=== PATIENT | female | born 1945 | race Caucasian/White ===

== ENCOUNTER 2021-06-21 09:16 | Inpatient (IN) ==
[2021-06-21] MEDS ORDERED: 0.9 % SODIUM CHLORIDE 1,000 ML IV ONE (10:32)
--- NOTE | 2021-06-21 10:45 | Emergency Department Note ---
HPI General Chief complaint: Weakness Stated complaint: Weakness, Fever Time Seen by Provider: 06/21/21 10:45 Source: patient Mode of arrival: ambulatory Limitations: no limitations History of Present Illness HPI Narrative: 76-year-old female with past medical history of hyperthyroidism, diabetes, and peripheral vascular disease presenting with multiple complaints. She states over the last week she has had generalized weakness, shortness of breath, chills, and fever at home to 103F. She also endorses pain in her left flank area that radiates into her left lower quadrant. She also endorses a few episodes of vomiting and some diarrhea. No blood in the stool or melena. No chest pain, cough, headache, dysuria, or hematuria. No sick contacts. Related Data Home Medications Medication Instructions Recorded Confirmed levothyroxine 125 mcg tablet 150 mcg PO DAILY 05/13/16 05/22/17 losartan 100 1 ea PO DAILY 05/13/16 05/22/17 mg-hydrochlorothiazide 25 mg tablet amlodipine 10 mg tablet 5 mg PO DAILY 05/22/17 05/22/17 aspirin 81 mg chewable tablet 81 mg PO DAILY 05/22/17 05/22/17 (Sridhar Chewable Low Dose Aspirin) glucosamin 375 mg-chond 300 2 ea PO DAILY 05/22/17 05/22/17 mg-collagen 50 mg-hyaluronic acid 2 mg cap lysine HCl 500 mg tablet 500 mg PO BID 05/22/17 05/22/17 metoprolol tartrate 25 mg tablet 25 mg PO BID 05/22/17 05/22/17 [id number]-[id number] 1 ea PO DAILY 05/22/17 05/22/17 fumarate 7.5 mg-folic acid 400 mcg tablet potassium chloride 20 mEq 20 meq PO BID 05/22/17 05/22/17 tablet,extended release(part/cryst) (Klor-Con M) vit A 1,000 unit-C 60 mg-E 30 1 ea PO DAILY 05/22/17 05/22/17 unit-zinc oxid-selenium AA-copper tablet (Vision Formula(W-S-L-Zn-Se-Cu)) zinc 50 mg tablet (Chelated Zinc) 50 mg PO DAILY 05/22/17 05/22/17 Previous Rx's Medication Instructions Recorded sulfamethoxazole 800 1 tab PO BID #20 tab 05/29/17 mg-trimethoprim 160 mg tablet amoxicillin 875 mg tablet 875 mg PO BID #20 tab 04/23/19 fluticasone propionate 50 1 spray INTRANASAL BID #9.9 ml 04/23/19 mcg/actuation nasal spray,suspension (Allergy Relief (fluticasone)) loratadine 10 mg capsule 10 mg PO QDAY #30 cap 04/23/19 Allergies Allergy/AdvReac Type Severity Reaction Status Date / Time No Known Drug Allergies Allergy Verified 05/22/17 13:02 Review of Systems ROS ROS Narrative: Narrative: Constitutional: Reports fever and chills Eyes: Denies vision change ENT ED: Denies throat pain Cardiovascular: Denies chest pain or palpitations Respiratory: Reports shortness of breath; Denies cough Gastrointestinal: Reports abdominal pain, nausea and vomiting; Denies melena Genitourinary: Denies dysuria or frequency Musculoskeletal: Reports back pain; Denies joint swelling Integumentary: Denies rash Neurological: Reports weakness; Denies headache or dizziness Psychiatric: Denies anxiety Endocrine: Reports fatigue Hematological/Lymphatic: Denies easy bleeding PFSH Narrative Patient History Narrative: Narrative: Medical/Surgical/Family History All Active Problems (Updated 06/21/21 @ 16:08 by Faraz Joy MD) Acute pyelonephritis (Acute) Acute kidney injury (Acute) Hyponatremia (Acute) Skin cancer (Chronic) Benign neoplasm of skin of trunk (Chronic) Seborrheic keratosis (Chronic) Actinic keratosis (Chronic) Lentigo (Chronic) Skin hemangioma (Chronic) Seborrheic dermatitis (Chronic) Moderate major depression (Chronic) Chronic cough (Chronic) Osteoarthritis (Chronic) Epigastric abdominal pain (Chronic) Hypothyroidism (Chronic) GERD (gastroesophageal reflux disease) (Chronic) Hypertriglyceridemia (Chronic) Mitral regurgitation (Chronic) Peripheral vascular disease with claudication (Chronic) Left ventricular hypertrophy (Chronic) Heart disease, hypertensive (Chronic) Carotid artery stenosis (Chronic) Finger laceration (Chronic) Bilateral knee pain (Chronic) Diabetes mellitus type II, uncontrolled (Chronic) Flank Pain (Chronic) Minor head injury (Chronic) Fall (Chronic) Laceration (Chronic) Cellulitis (Chronic) Medical History (Updated 06/21/21 @ 16:08 by Faraz Joy MD) Actinic keratosis Benign neoplasm of skin of trunk Bilateral knee pain Carotid artery stenosis Chronic cough Diabetes mellitus type II, uncontrolled Epigastric abdominal pain Finger laceration Flank Pain GERD (gastroesophageal reflux disease) Heart disease, hypertensive Hypertriglyceridemia Hypothyroidism Left ventricular hypertrophy Lentigo Mitral regurgitation Moderate major depression Osteoarthritis Peripheral vascular disease with claudication Seborrheic dermatitis Seborrheic keratosis Skin cancer Skin hemangioma Surgical History (Updated 07/19/18 @ 09:58 by Sharmaine Damon) History of bilateral oophorectomy History of cataract extraction x2 2014 History of hysterectomy Family History (Updated 07/19/18 @ 09:58 by Sharmaine Damon) Mother PMR (polymyalgia rheumatica) Social History Smoking Status: Former smoker Alcohol Intake Frequency: does not drink Exam Narrative Narrative: Narrative: General Limitations: no limitations General appearance: Present alert and in no apparent distress Head Head: Present atraumatic and normocephalic Eye Eye: Present normal appearance, PERRL and EOMI; Absent scleral icterus or conjunctival injection ENT ENT: Present normal oropharynx and mucous membranes moist Neck Neck: Present full ROM and trachea midline; Absent lymphadenopathy Chest Chest: Present symmetric chest wall rise Respiratory Respiratory: Present normal lung sounds bilaterally; Absent respiratory dist ress, wheezes, stridor, accessory muscle use or prolonged expiratory phase Cardiovascular Cardiovascular: Present regular rate and normal rhythm; Absent systolic murmur or diastolic murmur Adbominal Abdominal: Present soft and tenderness (Left lower quadrant tenderness); Absent distention, guarding, rebound, rigidity, organomegaly or mass Extremities Extremities: Present normal inspection and full ROM; Absent pretibial edema Back Back: Present normal inspection and CVA tenderness (L); Absent CVA tenderness (R) or spinous process tenderness Neurological Neurological: Present alert and oriented X3 Psychiatric Psychiatric: Present normal affect and normal mood Skin Skin: Present warm (WNL) and dry Course Consultations Consultation #1: Dr. Calvin, hospitalist Time: 15:40 Vital Signs Vital signs: Vital Signs Temperature 98.8 F 06/21/21 09:18 Pulse Rate 79 06/21/21 09:18 Respiratory Rate 24 H 06/21/21 09:18 Blood Pressure 112/53 06/21/21 09:18 Pulse Oximetry (%) 96 06/21/21 09:18 Temperature 98.8 F 06/21/21 09:18 Pulse Rate 76 06/21/21 15:16 Respiratory Rate 24 H 06/21/21 09:18 Blood Pressure 138/58 06/21/21 15:16 Pulse Oximetry (%) 97 06/21/21 15:16 MDM MDM Narrative Medical decision making narrative: 76-year-old female presenting with weakness, fever, and abdominal pain. Vital signs are stable. She is tender on abdominal exam. EKG shows right bundle branch block with PACs but no signs of ischemia. Covid and influenza are negative. Will obtain labs, chest x-ray, CT abdomen, and UA. Labs notable for leukocytosis to 13.3, creatinine of 2.8, and sodium of 127. UA is consistent with infection and CT results as well as her physical exam consistent with left-sided pyelonephritis. Vital signs are stable. She was given normal saline bolus and a dose of IV Rocephin. Patient endorsed to Dr. Calvin for admission. Lab Data Lab results reviewed: Yes I reviewed the patient's lab results. Result diagrams: 06/21/21 10:30 06/21/21 10:30 Labs: Lab Results 06/21/21 06/21/21 06/21/21 Range/Units 10:30 10:30 10:30 WBC 13.3 H (4.5-11.0) K/mcL RBC 3.56 L (3.59-5.38) M/mcL Hgb 10.2 L (11.2-15.7) g/dL Hct 29.9 L (34.1-44.9) % MCV 84.0 (80.0-100.0) fL MCH 28.7 (26.0-34.0) pg MCHC 34.1 (31.0-36.0) g/dL RDW 14.0 (11.5-14.5) % Plt Count 247 (140-440) K/mcL MPV 10.9 H (7.4-10.4) fL Seg Neutrophils % 82 H (38-78) % Band Neutrophils % 4 (0-10) % Lymphocytes % 5 L (15-49) % Monocytes % (Manual) 9 (1-12) % Platelet Estimate Normal (Normal) RBC Morphology Normal (Normal) Sodium 127 L (133-145) mmol/L Potassium 3.0 L (3.3-5.1) mmol/L Chloride 93 L (96-108) mmol/L Carbon Dioxide 18 L (22-30) mmol/L Anion Gap 16.0 (8.0-16.0) BUN 59 H (8-23) mg/dL Creatinine 2.8 H (0.6-1.1) mg/dL POC Creatinine (0.6-1.2) mg/dL GFR Calculation 16 Glucose 111 H (70-105) mg/dL Calcium 8.3 L (8.6-10.4) mg/dL Total Bilirubin 0.4 (0.1-1.0) mg/dL AST 67 H (<32) U/L ALT 39 (<40) U/L Alkaline Phosphatase 82 (39-117) U/L Troponin T < 0.01 (<0.03) ng/mL Total Protein 6.7 (5.9-8.4) gm/dL Albumin 3.1 L (3.2-5.2) gm/dL Globulin 3.6 (2.2-3.7) gm/dL Albumin/Globulin Ratio 0.9 L (1.0-2.3) Urine Color Urine Appearance (Clear) Urine pH (5.0-9.0) Ur Specific [place] (1.000-1.035) Urine Protein (Negative) mg/dL Urine Glucose (UA) (Negative) mg/dL Urine Ketones (Negative) mg/dL Urine Occult Blood (Negative) mg/dL Urine Nitrate (Negative) Urine Bilirubin (Negative) mg/dL Urine Urobilinogen mg/dL Ur Leukocyte Esterase (Negative) /uL Urine RBC (0-3) /hpf Urine WBC (0-4) /hpf Ur Squamous Epith Cells (0-4) /hpf Ur Transition Epith Cell (0-2) /hpf Urine Bacteria (0) /hpf Hyaline Casts (0-2) /lph Urine Mucus (None) /hpf Ur Culture Indicated? 06/21/21 06/21/21 Range/Units 11:04 11:43 WBC (4.5-11.0) K/mcL RBC (3.59-5.38) M/mcL Hgb (11.2-15.7) g/dL Hct (34.1-44.9) % MCV (80.0-100.0) fL MCH (26.0-34.0) pg MCHC (31.0-36.0) g/dL RDW (11.5-14.5) % Plt Count (140-440) K/mcL MPV (7.4-10.4) fL Seg Neutrophils % (38-78) % Band Neutrophils % (0-10) % Lymphocytes % (15-49) % Monocytes % (Manual) (1-12) % Platelet Estimate (Normal) RBC Morphology (Normal) Sodium (133-145) mmol/L Potassium (3.3-5.1) mmol/L Chloride (96-108) mmol/L Carbon Dioxide (22-30) mmol/L Anion Gap (8.0-16.0) BUN (8-23) mg/dL Creatinine (0.6-1.1) mg/dL POC Creatinine 3.0 H (0.6-1.2) mg/dL GFR Calculation Glucose (70-105) mg/dL Calcium (8.6-10.4) mg/dL Total Bilirubin (0.1-1.0) mg/dL AST (<32) U/L ALT (<40) U/L Alkaline Phosphatase (39-117) U/L Troponin T (<0.03) ng/mL Total Protein (5.9-8.4) gm/dL Albumin (3.2-5.2) gm/dL Globulin (2.2-3.7) gm/dL Albumin/Globulin Ratio (1.0-2.3) Urine Color Yellow Urine Appearance Cloudy A (Clear) Urine pH 5.0 (5.0-9.0) Ur Specific [place] 1.012 (1.000-1.035) Urine Protein 100 A (Negative) mg/dL Urine Glucose (UA) Negative (Negative) mg/dL Urine Ketones Negative (Negative) mg/dL Urine Occult Blood 0.20 (Negative) mg/dL Urine Nitrate Negative (Negative) Urine Bilirubin Negative (Negative) mg/dL Urine Urobilinogen Negative mg/dL Ur Leukocyte Esterase 500 A (Negative) /uL Urine RBC 43 H (0-3) /hpf Urine WBC > 182 H (0-4) /hpf Ur Squamous Epith Cells 6 H (0-4) /hpf Ur Transition Epith Cell 2 (0-2) /hpf Urine Bacteria Mod A (0) /hpf Hyaline Casts 14 H (0-2) /lph Urine Mucus Few A (None) /hpf Ur Culture Indicated? No ED POC Tests ED POC Tests: SILVIA - Influenza A Negative SILVIA - Influenza B Negative SILVIA - SARS Antigen Negative Radiology Data Radiology results reviewed: Yes I reviewed the patient's radiology results. Radiology results narrative: Ordering Physician:Faraz Joy M.D. Date of Service:06/21/21 Procedure(s):XR chest 2V CLINICAL INFORMATION: Dyspnea COMPARISON: 02/03/2021 TECHNIQUE: PA and Lateral views FINDINGS: The heart is borderline enlarged but unchanged. Mediastinum and pulmonary vessels are normal. Minimal patchy airspace disease in both lower lobes could indicate developing infiltrate or atelectasis. No effusion. IMPRESSION: Minimal patchy bilateral lower lobe airspace disease which may indicate developing infiltrate or atelectasis.. Interpreted and Authenticated by: Arden Olivares 06/21/21 Ordering Physician:Faraz Joy M.D. Date of Service:06/21/21 Procedure(s):CT abdomen pelvis wo con CLINICAL INFORMATION: Left flank pain and vomiting fever COMPARISON: Abdomen and pelvic CT 03/17/2017 TECHNIQUE: 0.625 mm helical slices were obtained from the mid heart through the subtrochanteric regions. Following reconstruction, 2.5 mm sagittal, coronal and axial reformatted images were processed and reviewed at bone and soft tissue windows.The exam was performed using radiation dose optimization techniques including, but not limited to, automated exposure control, adjustment of the mA and/or kV according to patient size and use of iterative reconstruction technique. FINDINGS: The lung bases are clear. No effusions. The visualized heart is grossly normal. Abdominal images show the noncontrasted gallbladder and bile ducts, liver, adrenal glands, spleen, pancreas and aorta, including aortic branches, are normal in size, configuration and attenuation without focal lesion. There is no free air, free fluid or adenopathy. Both kidneys are normal in configuration position. Both are moderately enlarged: ET tube is 15 cm in length. On the previous exam. KUB was approximately 13 cm in length. The left kidney demonstrates diffuse inflammation or edema with perinephric stranding suggesting infection or inflammation. No evidence of hydronephrosis or stones. Pelvic images show mild diffuse wall thickening the urinary bladder. Uterus and both ovaries are surgically absent. The stomach, small bowel, appendix region and large bowel are grossly normal. Bone windows show no osseous abnormality. IMPRESSION: 1. Mild edema or inflammation throughout the left kidney with perinephric stranding suggesting pyelonephritis or other inflammatory process. There is no evidence of hydronephrosis or obstructing stone. 2. Mild diffuse wall thickening of urinary bladder suggesting cystitis or other infiltrative process. Interpreted and Authenticated by: Arden Olivares 06/21/21 EKG Data EKG #1: EKG attestation: Yes I reviewed and interpreted this EKG. and Yes There are no EKG findings of acute coronary syndrome EKG results narrative: Sinus rhythm at 68 bpm. Right bundle branch block present. PACs noted. No ST elevation or depression. Interpretation: no acute changes Discharge Plan Patient/Caregiver Discharge Instructions Pt seen by FINANCIAL SERVICES SPECIALIST/PA only: No Clinical Impression: Acute pyelonephritis, Acute kidney injury, Hyponatremia Patient Disposition: Xfer As Inpt ([facility]) Condition: Fair Follow up with: Sandrita Motta MD [Primary Care Provider] - Prescriptions: No Action losartan-hydrochlorothiazide 1 EACH Tablet 1 ea PO DAILY 0RF levothyroxine 125 MCG Tablet 150 mcg PO DAILY 0RF potassium chloride [Klor-Con M20] 20 MEQ Tab.Er.Prt 20 meq PO BID 0RF amlodipine 10 MG Tablet 5 mg PO DAILY 0RF aspirin [Sridhar Chewable Aspirin] 81 MG Tab.Chew 81 mg PO DAILY 0RF zinc [Chelated Zinc] 50 MG Tablet 50 mg PO DAILY 0RF metoprolol tartrate 25 MG Tablet 25 mg PO BID 0RF yadykctw-jzsf-wpfebi-hyalur ac 1 EACH Capsule 2 ea PO DAILY 0RF lysine HCl 500 MG Tablet 500 mg PO BID 0RF duqdkqfu-ybs-rziw fum-folic ac 1 EACH Tablet 1 ea PO DAILY 0RF A-C-E-zinc ox-selen AA-copper [Vision Formula(E-H-G-Zn-Se-Cu)] 1 EACH Tablet 1 ea PO DAILY 0RF sulfamethoxazole-trimethoprim 1 TAB tablet 1 tab PO BID Qty: 20 0RF amoxicillin 875 mg tablet 875 mg PO BID Qty: 20 0RF fluticasone propionate [Allergy Relief (fluticasone)] 50 mcg/actuation spr ay,suspension 1 spray INTRANASAL BID Qty: 9.9 0RF Rx Instructions: administer into each nostril loratadine 10 mg capsule 10 mg PO QDAY Qty: 30 0RF
[2021-06-21 11:31] LABS: ALT/SGPT 39 U/L (<40); AST/SGOT 67 U/L (<32); Albumin 3.1 gm/dL (3.2-5.2); Albumin/Globulin Ratio 0.9 (1.0-2.3); Alkaline Phosphatase 82 U/L (39-117); Bilirubin,Total 0.4 mg/dL (0.1-1.0); Blood Urea Nitrogen 59 mg/dL (8-23); Calcium 8.3 mg/dL (8.6-10.4); Carbon Dioxide 18 mmol/L (22-30); Chloride 93 mmol/L (96-108); Globulin 3.6 gm/dL (2.2-3.7); Glomerular Filtration Rate 16; Glucose 111 mg/dL (70-105)
[2021-06-21 11:45] LABS: Hematocrit 29.9 % (34.1-44.9); Hemoglobin 10.2 g/dL (11.2-15.7); Mean Corpuscular HGB Conc 34.1 g/dL (31.0-36.0); Mean Platelet Volume 10.9 fL (7.4-10.4); Platelet Count 247 K/mcL (140-440); RBC 3.56 M/mcL (3.59-5.38); WBC 13.3 K/mcL (4.5-11.0)
[2021-06-21 12:09] LABS: Band Neutrophils % 4 % (0-10); Lymphocytes % 5 % (15-49); Monocytes % (Manual) 9 % (1-12); Platelet Estimate NORMAL (Normal); RBC Morphology NORMAL (Normal); Segmented Neutrophils % 82 % (38-78)
[2021-06-21 12:09] LABS: Appearance,Urine CLOUDY (Clear); Bacteria,Urine MOD /hpf (0); Bilirubin,Urine Negative (Negative); Color,Urine Yellow; Culture Indicated,Urine No; Glucose,Urine (UA) Negative (Negative); Ketones,Urine Negative (Negative); Leukocyte Esterase,Urine 500 /uL (Negative); Mucus,Urine FEW /hpf; Nitrate,Urine Negative (Negative); Protein,Urine 100 mg/dL (Negative); Specific Gravity,Urine 1.012 (1.000-1.035); Urine Hyaline Cast 14 /lph (0-2); Urine RBC 43 /hpf (0-3); Urine Squamous Epithelial Cell 6 /hpf (0-4); Urine Transitional Epi Cells 2 /hpf (0-2); Urine WBC > 182 /hpf (0-4); Urobilinogen,Urine Negative
--- NOTE | 2021-06-21 13:02 | XRay Report ---
CLINICAL INFORMATION: Dyspnea COMPARISON: 02/03/2021 TECHNIQUE: PA and Lateral views FINDINGS: The heart is borderline enlarged but unchanged. Mediastinum and pulmonary vessels are normal. Minimal patchy airspace disease in both lower lobes could indicate developing infiltrate or atelectasis. No effusion. IMPRESSION: Minimal patchy bilateral lower lobe airspace disease which may indicate developing infiltrate or atelectasis.. Interpreted and Authenticated by: Arden Olivares 06/21/21
--- NOTE | 2021-06-21 14:16 | Cat Scan Report ---
CLINICAL INFORMATION: Left flank pain and vomiting fever COMPARISON: Abdomen and pelvic CT 03/17/2017 TECHNIQUE: 0.625 mm helical slices were obtained from the mid heart through the subtrochanteric regions. Following reconstruction, 2.5 mm sagittal, coronal and axial reformatted images were processed and reviewed at bone and soft tissue windows.The exam was performed using radiation dose optimization techniques including, but not limited to, automated exposure control, adjustment of the mA and/or kV according to patient size and use of iterative reconstruction technique. FINDINGS: The lung bases are clear. No effusions. The visualized heart is grossly normal. Abdominal images show the noncontrasted gallbladder and bile ducts, liver, adrenal glands, spleen, pancreas and aorta, including aortic branches, are normal in size, configuration and attenuation without focal lesion. There is no free air, free fluid or adenopathy. Both kidneys are normal in configuration position. Both are moderately enlarged: ET tube is 15 cm in length. On the previous exam. KUB was approximately 13 cm in length. The left kidney demonstrates diffuse inflammation or edema with perinephric stranding suggesting infection or inflammation. No evidence of hydronephrosis or stones. Pelvic images show mild diffuse wall thickening the urinary bladder. Uterus and both ovaries are surgically absent. The stomach, small bowel, appendix region and large bowel are grossly normal. Bone windows show no osseous abnormality. IMPRESSION: 1. Mild edema or inflammation throughout the left kidney with perinephric stranding suggesting pyelonephritis or other inflammatory process. There is no evidence of hydronephrosis or obstructing stone. 2. Mild diffuse wall thickening of urinary bladder suggesting cystitis or other infiltrative process. Interpreted and Authenticated by: Arden Olivares 06/21/21
--- NOTE | 2021-06-21 14:32 | EKG ---
[facility] Test Date: 2021-06-21 Pat Name: Carlota Sparrow Department: ED Room: Gender: Female [employer]: : 1945 Requested By: Faraz Joy Order Number: [id number] Reading MD: Arden Baptiste M.D. Measurements Intervals [place] Rate: 68 P: 18 ND: 170 QRS: 29 QRSD: 166 T: -33 QT: 422 QTc: 449 Interpretive Statements Sinus rhythm Atrial premature complexes Right bundle branch block Electronically Signed On 06-21-2021 14:31:35 PST by Arden Baptiste M.D. /[id number]
[2021-06-21] MEDS ORDERED: cefTRIAXone 1 GM VIAL IV ONE (14:43)
--- NOTE | 2021-06-21 16:22 | Internal Med History&Physical ---
HPI History of Present Illness Patient information: Note initiated : 06/21/21 at 4:16 pm Service Date, if different from initiated Date: [] Patient: Carlota Sparrow a 76 y/o F admitted on for Weakness, Fever. Chief Complaint: [pyelonephritis] History of present illness: Ms. Sparrow is a 76 year old F history of T2DM, peripheral vesicular disease, essential HTN, p/w 1 week history of general body weakness, left upper back pain, and decreased appetite. She denies prior or recent history of UTI. Over the past week, she is complaining of left sided back pain, associated with general body weakness and decreased appetite. She is also c/o fever and chills with Tmax 103 a few days ago. She denies any dysuria or change in urinary frequency or urgency. She presented to our ED today for evaluation of her symptoms. Vital signs all within normal limits. Labs significant for leukocytosis with WBC 13.3. Serum sodium and potassium 127 and 3.0, respectively. Serum Cr level 2.8 with baseline 0.66. UA indicative of presence of UTI. CT abdomen pelvis w/o showing mild edema or inflammation throughout the left kidney with perinephric stranding suggestive of pyelonephritis. No evidence of hydronephrosis or obstructing stone. Constitutional Constitutional: Present chills, fatigue, fever(s) and weakness; Absent excessive sweating Additional comments: decreased appetite. EENT Eyes: Absent blurry vision, change in vision, loss of vision or other visual disturbances Ears: Absent decreased hearing or tinnitus Nose, mouth and throat: Absent abnormal hearing, dry mouth, headache(s), nasal congestion or sore throat Cardiovascular Cardiovascular: Absent chest pain, chest pain at rest, edema, irregular heart rhythm or palpatations Respiratory Respiratory: Absent cough, dyspnea or wheezing Gastrointestinal Gastrointestinal: Absent abdominal pain, constipation, diarrhea, nausea or vomiting Musculoskeletal Musculoskeletal: Present back pain; Absent deformity, limited range of motion, muscle cramps, muscle weakness or numbness Integumentary Integumentary: Absent lesions, rash or wounds Neurological Neurological: Absent focal weakness, headache(s) or numbness Psychiatric Psychiatric: Absent anxiety, depression or hallucinations PFSH PFSH All Active Problems (Updated 06/21/21 @ 16:43 by Lewis Calvin MD) Anemia, normocytic normochromic (Acute) Peripheral vascular disease (Acute) Hypokalemia (Acute) T2DM (type 2 diabetes mellitus) (Acute) Stage 2 acute kidney injury (Acute) Acute pyelonephritis (Acute) Acute kidney injury (Acute) Hyponatremia (Acute) Skin cancer (Chronic) Benign neoplasm of skin of trunk (Chronic) Seborrheic keratosis (Chronic) Actinic keratosis (Chronic) Lentigo (Chronic) Skin hemangioma (Chronic) Seborrheic dermatitis (Chronic) Moderate major depression (Chronic) Chronic cough (Chronic) Osteoarthritis (Chronic) Epigastric abdominal pain (Chronic) Hypothyroidism (Chronic) GERD (gastroesophageal reflux disease) (Chronic) Hypertriglyceridemia (Chronic) Mitral regurgitation (Chronic) Peripheral vascular disease with claudication (Chronic) Left ventricular hypertrophy (Chronic) Heart disease, hypertensive (Chronic) Carotid artery stenosis (Chronic) Finger laceration (Chronic) Bilateral knee pain (Chronic) Diabetes mellitus type II, uncontrolled (Chronic) Flank Pain (Chronic) Minor head injury (Chronic) Fall (Chronic) Laceration (Chronic) Cellulitis (Chronic) Medical History (Updated 06/21/21 @ 16:43 by Lewis Calvin MD) Actinic keratosis Benign neoplasm of skin of trunk Bilateral knee pain Carotid artery stenosis Chronic cough Diabetes mellitus type II, uncontrolled Epigastric abdominal pain Finger laceration Flank Pain GERD (gastroesophageal reflux disease) Heart disease, hypertensive Hypertriglyceridemia Hypothyroidism Left ventricular hypertrophy Lentigo Mitral regurgitation Moderate major depression Osteoarthritis Peripheral vascular disease with claudication Seborrheic dermatitis Seborrheic keratosis Skin cancer Skin hemangioma Surgical History (Updated 07/19/18 @ 09:58 by Sharmaine Damon) History of bilateral oophorectomy History of cataract extraction x2 2014 History of hysterectomy Family History (Updated 07/19/18 @ 09:58 by Sharmaine Damon) Mother PMR (polymyalgia rheumatica) Social History (Updated 04/23/19 @ 15:17 by BRANDYN Mark) marital status: occupational status: retired physical activity: walking alcohol intake frequency: does not drink MEDS/ALLERGIES Home Medications and Allergies Home Medications Medication Instructions Recorded Confirmed Type levothyroxine 125 mcg tablet 150 mcg PO DAILY 05/13/16 05/22/17 History losartan 100 1 ea PO DAILY 05/13/16 05/22/17 History mg-hydrochlorothiazide 25 mg tablet amlodipine 10 mg tablet 5 mg PO DAILY 05/22/17 05/22/17 History aspirin 81 mg chewable tablet 81 mg PO DAILY 05/22/17 05/22/17 History (Sridhar Chewable Low Dose Aspirin) glucosamin 375 mg-chond 300 2 ea PO DAILY 05/22/17 05/22/17 History mg-collagen 50 mg-hyaluronic acid 2 mg cap lysine HCl 500 mg tablet 500 mg PO BID 05/22/17 05/22/17 History metoprolol tartrate 25 mg tablet 25 mg PO BID 05/22/17 05/22/17 History [id number] 1 ea PO DAILY 05/22/17 05/22/17 History fumarate 7.5 mg-folic acid 400 mcg tablet potassium chloride 20 mEq 20 meq PO BID 05/22/17 05/22/17 History tablet,extended release(part/cryst) (Klor-Con M) vit A 1,000 unit-C 60 mg-E 30 1 ea PO DAILY 05/22/17 05/22/17 History unit-zinc oxid-selenium AA-copper tablet (Vision Formula(A-S-Y-Zn-Se-Cu)) zinc 50 mg tablet (Chelated Zinc) 50 mg PO DAILY 05/22/17 05/22/17 History sulfamethoxazole 800 1 tab PO BID #20 tab 05/29/17 Rx mg-trimethoprim 160 mg tablet amoxicillin 875 mg tablet 875 mg PO BID #20 tab 04/23/19 04/23/19 Rx fluticasone propionate 50 1 spray INTRANASAL BID #9.9 ml 04/23/19 04/23/19 Rx mcg/actuation nasal spray,suspension (Allergy Relief (fluticasone)) loratadine 10 mg capsule 10 mg PO QDAY #30 cap 04/23/19 04/23/19 Rx Allergies Allergy/AdvReac Type Severity Reaction Status Date / Time No Known Drug Allergies Allergy Verified 05/22/17 13:02 EXAM Constitutional Vitals: Temp Pulse Resp BP Pulse Ox 37.1 C 82 24 H 151/57 100 06/21/21 09:18 06/21/21 16:10 06/21/21 09:18 06/21/21 16:02 06/21/21 16:10 General appearance: cooperative and no acute distress Head Head exam: Present atraumatic and normocephalic Eye Eye exam: Present EOMI and PERRL ENT ENT exam: Present mucous membranes moist, normal exam and normal external ear exam Neck Neck exam: Present normal inspection; Absent lymphadenopathy, tenderness or thyromegaly Respiratory Respiratory exam: Absent accessory muscle use, respiratory distress or wheezes Cardiovascular Cardiovascular exam: Present normal rate and rhythm; Absent JVD GI/Abdominal GI/Abdominal exam: Present normal bowel sounds and soft; Absent organomegaly or tenderness Extremities Exam Extremities exam: Present full ROM, normal capillary refill and normal i nspection; Absent tenderness Back Exam Back exam: Present CVA tenderness (L) Neurological Exam Neurological exam: Present alert, CN II-XII intact and oriented X3; Absent motor sensory deficit Psychiatric Psychiatric exam: Present normal affect and normal mood; Absent anxious or depressed Skin Skin exam: Present dry and intact DATA Data Completed and Pending Labs: Labs from last 24 hours 06/21/21 06/21/21 06/21/21 15:57 11:43 11:04 WBC RBC Hgb Hct MCV MCH MCHC RDW Plt Count MPV Seg Neutrophils % Band Neutrophils % Lymphocytes % Monocytes % (Manual) Platelet Estimate RBC Morphology VBG Lactic Acid Pending Sodium Potassium Chloride Carbon Dioxide Anion Gap BUN Creatinine POC Creatinine 3.0 H GFR Calculation Glucose Calcium Total Bilirubin AST ALT Alkaline Phosphatase Troponin T Total Protein Albumin Globulin Albumin/Globulin Ratio Urine Color Yellow Urine Appearance Cloudy A Urine pH 5.0 Ur Specific [place] 1.012 Urine Protein 100 A Urine Glucose (UA) Negative Urine Ketones Negative Urine Occult Blood 0.20 Urine Nitrate Negative Urine Bilirubin Negative Urine Urobilinogen Negative Ur Leukocyte Esterase 500 A Urine RBC 43 H Urine WBC > 182 H Ur Squamous Epith Cells 6 H Ur Transition Epith Cell 2 Urine Bacteria Mod A Hyaline Casts 14 H Urine Mucus Few A Ur Culture Indicated? No 06/21/21 06/21/21 06/21/21 10:30 10:30 10:30 WBC 13.3 H RBC 3.56 L Hgb 10.2 L Hct 29.9 L MCV 84.0 MCH 28.7 MCHC 34.1 RDW 14.0 Plt Count 247 MPV 10.9 H Seg Neutrophils % 82 H Band Neutrophils % 4 Lymphocytes % 5 L Monocytes % (Manual) 9 Platelet Estimate Normal RBC Morphology Normal VBG Lactic Acid Sodium 127 L Potassium 3.0 L Chloride 93 L Carbon Dioxide 18 L Anion Gap 16.0 BUN 59 H Creatinine 2.8 H POC Creatinine GFR Calculation 16 Glucose 111 H Calcium 8.3 L Total Bilirubin 0.4 AST 67 H ALT 39 Alkaline Phosphatase 82 Troponin T < 0.01 Total Protein 6.7 Albumin 3.1 L Globulin 3.6 Albumin/Globulin Ratio 0.9 L Urine Color Urine Appearance Urine pH Ur Specific [place] Urine Protein Urine Glucose (UA) Urine Ketones Urine Occult Blood Urine Nitrate Urine Bilirubin Urine Urobilinogen Ur Leukocyte Esterase Urine RBC Urine WBC Ur Squamous Epith Cells Ur Transition Epith Cell Urine Bacteria Hyaline Casts Urine Mucus Ur Culture Indicated? A/P Assessment and plan (1) Acute pyelonephritis: Status: Acute (2) Stage 2 acute kidney injury: Status: Acute (3) Hyponatremia: Status: Acute (4) Hypothyroidism: Status: Chronic (5) GERD (gastroesophageal reflux disease): Status: Chronic (6) T2DM (type 2 diabetes mellitus): Status: Acute (7) Hypokalemia: Status: Acute (8) Peripheral vascular disease: Status: Acute (9) Anemia, normocytic normochromic: Status: Acute Narrative A/P Narrative: Assessment and Plans: 1. Left pyelonephritis: Admit to inpatient med surg Serial lactic acid Blood culture Urine culture cbc w/ auto diff in the morning to trend WBC Rocephin s/p fluid bolus given in the ED, to be followed by NS@100cc/hr Tylenol PRN fever 2. Peripheral vescular disease: Continue aspirin Continue statin therapy 3. Essential HTN: Currently normotensive Continue Amlodipine and Beta judd 4. Stage 2 acute kidney injury: Likely secondary to pyelonephritis, CT abdomen pelvis shows no hydronephrosis or obstruction Baseline serum Cr level of 0.66, 2.8 at admission Avoid nephrotoxic agents s/p fluid bolus given in the ED, to be followed by NS@100cc/hr CMP in the morning to trend kidney functions 5. Hyponatremia: s/p fluid bolus given in the ED, to be followed by NS@100cc/hr CMP in the morning to trend serum sodium level 6. Hypokalemia: Continue potassium chloride oral replacement CMP in the morning to trend serum potassium level Also check serum Mg level and replace if needed 7. Anemia, normocytic normochromic: cbc w/ auto diff in the morning to trend H/H 8. Hypothyroidism: Continue oral thyroid replacement therapy 9. GERD: Continue oral PPI from home regimen 10. T2DM: HgA1c Hold oral hypoglycemics Low dose correctional scale insulin AC HS Accu Chek AC Hypoglycemia protocol Diabetic diet GI ppx: oral PPI from home regimen DVT ppx: Heparin Code status: Full Prognosis: guarded Disposition: Inpatient med surg Time Spent With Patient Time: Total time spent is greater than 50% in coordination of care (as documented) at patient's floor/unit and/or counseling patient: Total time spent with greater than 50% in coordination of care (as documented) at patient's floor/unit and/or counseling patient:: Greater than 35 minutes
[2021-06-21] MEDS ORDERED: cefTRIAXone 2 GM in DEXTROSE 5% IN WATER 50 ML IV SCH (17:22)
[2021-06-21] MEDS ORDERED: ONDANSETRON 4 MG/2 ML VIAL IV PRN (17:22)
[2021-06-21] MEDS ORDERED: ZOLPIDEM 5 MG TABLET PO PRN (17:22)
[2021-06-21] MEDS ORDERED: DEXTROSE 31 GM ORAL.SUSP PO PRN (17:22)
[2021-06-21] MEDS ORDERED: oxyCODONE HCL 5 MG TABLET PO PRN (17:22)
[2021-06-21] MEDS ORDERED: morphine 4 MG/ML VIAL IV PRN (17:22)
[2021-06-21] MEDS ORDERED: IPRATROPIUM/ALBUTEROL 3 ML AMPUL.NEB NEB PRN (17:22)
[2021-06-21] MEDS ORDERED: DEXTROSE 50% 50 ML VIAL IV PRN (17:22)
[2021-06-21] MEDS: ACETAMINOPHEN 325 MG TABLET PO PRN (18:46)
[2021-06-21] MEDS: 0.9 % SODIUM CHLORIDE 1,000 ML IV SCH (20:09)
[2021-06-21] MEDS: INSULIN LISPRO 1 UNIT/0.01 ML UNIT SQ SCH ×2 (20:30→20:55)
[2021-06-21] MEDS: POTASSIUM CHLORIDE 20 MEQ TABLET PO SCH (20:50)
[2021-06-21] MEDS: HEPARIN 5,000 UNIT/ML VIAL SQ SCH (20:51)
[2021-06-21] MEDS: 0.9 % SODIUM CHLORIDE 10 ML SYRINGE IV SCH (20:52)
[2021-06-21] MEDS: METOPROLOL TARTRATE 25 MG TABLET PO SCH (20:52)
[2021-06-21] MEDS: DOCUSATE SODIUM 100 MG CAPSULE PO SCH (20:52)
[2021-06-21] MEDS: FLUTICASONE PROPIONATE SPRAY.NAS NS SCH (20:52)
[2021-06-21] MEDS: LYSINE HCL 500 MG PO SCH (20:52)
[2021-06-21] MEDS: SENNOSIDES 1 TABLET PO SCH (20:52)
[2021-06-22] MEDS: ACETAMINOPHEN 325 MG TABLET PO PRN ×3 (00:14→18:44)
[2021-06-22] MEDS: 0.9 % SODIUM CHLORIDE 1,000 ML IV SCH ×4 (04:00→21:47)
[2021-06-22] MEDS: 0.9 % SODIUM CHLORIDE 10 ML SYRINGE IV SCH ×3 (04:00→21:48)
[2021-06-22] MEDS: INSULIN LISPRO 1 UNIT/0.01 ML UNIT SQ SCH ×4 (07:26→21:45)
[2021-06-22 08:05] LABS: Basophils # (Auto) 0.03 K/mcL (0.00-0.30); Basophils % (Auto) 0.3 % (0.0-2.0); Eosinophils # (Auto) 0.03 K/mcL (0.00-0.70); Eosinophils % (Auto) 0.3 % (0.0-7.0); Hematocrit 31.8 % (34.1-44.9); Hemoglobin 10.6 g/dL (11.2-15.7); Lymphocytes # (Auto) 0.51 K/mcL (1.50-4.80); Lymphocytes % (Auto) 5.2 % (15.5-49.0); Mean Cell Volume 84.8 fL (80.0-100.0); Mean Corpuscular HGB Conc 33.3 g/dL (31.0-36.0); Monocytes # (Auto) 0.95 K/mcL (0.10-0.90); Monocytes % (Auto) 9.6 % (1.0-12.0); Platelet Count 250 K/mcL (140-440); RBC 3.75 M/mcL (3.59-5.38); Red Cell Distribution Width 14.1 % (11.5-14.5); WBC 9.9 K/mcL (4.5-11.0)
[2021-06-22 08:12] LABS: Phosphorous 3.4 mg/dL (2.5-4.5)
[2021-06-22 08:33] LABS: ALT/SGPT 57 U/L (<40); AST/SGOT 111 U/L (<32); Albumin 3.1 gm/dL (3.2-5.2); Albumin/Globulin Ratio 0.8 (1.0-2.3); Alkaline Phosphatase 100 U/L (39-117); Bilirubin,Total 0.5 mg/dL (0.1-1.0); Blood Urea Nitrogen 49 mg/dL (8-23); Calcium 8.6 mg/dL (8.6-10.4); Carbon Dioxide 18 mmol/L (22-30); Chloride 100 mmol/L (96-108); Globulin 3.7 gm/dL (2.2-3.7); Glomerular Filtration Rate 33; Glucose 143 mg/dL (70-105)
[2021-06-22 09:24] LABS: Neutrophils % (Auto) 84.6 % (38.0-78.0)
[2021-06-22] MEDS: FLUTICASONE PROPIONATE SPRAY.NAS NS SCH ×2 (09:45→21:45)
[2021-06-22] MEDS: LORATADINE 10 MG TABLET PO SCH (09:45)
[2021-06-22] MEDS: GLUCOSAMINE/CHONDROITIN SULF A 1 CAP CAPSULE PO SCH (09:46)
[2021-06-22] MEDS: LYSINE HCL 500 MG PO SCH ×2 (09:46→21:45)
[2021-06-22] MEDS: VIT A,C & E/LUTEIN/MINERALS TABLET PO SCH (09:46)
[2021-06-22] MEDS: MULTIVIT,THER IRON,CA,FA & MIN 1 TABLET PO SCH (09:46)
[2021-06-22] MEDS: LEVOTHYROXINE 125 MCG TABLET PO SCH (09:57)
[2021-06-22] MEDS: METOPROLOL TARTRATE 25 MG TABLET PO SCH ×2 (09:58→21:44)
[2021-06-22] MEDS: ASPIRIN 81 MG TAB.CHEW PO SCH (09:58)
[2021-06-22] MEDS: amLODIPine 10 MG TABLET PO SCH (09:59)
[2021-06-22] MEDS: POTASSIUM CHLORIDE 20 MEQ TABLET PO SCH ×2 (09:59→21:44)
[2021-06-22] MEDS: DOCUSATE SODIUM 100 MG CAPSULE PO SCH ×2 (10:02→21:42)
[2021-06-22] MEDS: ZINC SULFATE 50 MG CAPSULE PO SCH (10:03)
[2021-06-22] MEDS: cefTRIAXone 2 GM in DEXTROSE 5% IN WATER 50 ML IV SCH (10:03)
[2021-06-22] MEDS: HEPARIN 5,000 UNIT/ML VIAL SQ SCH ×2 (10:11→21:42)
--- NOTE | 2021-06-22 10:55 | Internal Med Progress Note ---
SUBJECTIVE Subjective Patient information: Note initiated : 06/22/21 at 10:52 am Service Date, if different from initiated Date: [] Patient: Carlota Sparrow a 76 y/o F admitted on 06/21/21 for Weakness, Fever. Chief Complaint: [] Interval history: Ms. Sparrow is a 76 year old F history of T2DM, peripheral vesicular disease, essential HTN, p/w 1 week history of general body weakness, left upper back pain, and decreased appetite. She denies prior or recent history of UTI. Over the past week, she is complaining of left sided back pain, associated with general body weakness and decreased appetite. She is also c/o fever and chills with Tmax 103 a few days ago. She denies any dysuria or change in urinary frequency or urgency. She presented to our ED today for evaluation of her symptoms. Vital signs all within normal limits. Labs significant for leukocytosis with WBC 13.3. Serum sodium and potassium 127 and 3.0, respectively. Serum Cr level 2.8 with baseline 0.66. UA indicative of presence of UTI. CT abdomen pelvis w/o showing mild edema or inflammation throughout the left kidney with perinephric stranding suggestive of pyelonephritis. No evidence of hydronephrosis or obstructing stone. 06/22: Afebrile overnight. Blood and urine cultures no growth to date. c/o fever and chills. c/o general body weakness. Denies back pain. Denies dysuria. Good appetite. On IV fluid and Rocephin. Constitutional Vitals: Vital Signs Temp Pulse Resp BP Pulse Ox 36.4 C 70 17 154/68 99 06/22/21 08:23 06/22/21 07:24 06/22/21 07:24 06/22/21 07:24 06/22/21 07:45 Period Temp Pulse Resp BP Sys/[place] Pulse Ox Last 24 Hr 36.4 C-37.6 C 66-88 - 120-158/47-69 95-100 Intake and Output 06/21/21 06/22/21 06/22/21 21:59 05:59 13:59 Intake Total 1585 1100 Output Total 450 2000 400 Balance -450 -415 700 Weight 82.463 kg Intake & Output: Intake & Output 06/21/21 06/22/21 06/22/21 21:59 05:59 13:59 Intake Total 1585 1100 Output Total 450 2000 400 Balance -450 -415 700 Weight 82.463 kg Intake: IV 785 Sodium Chloride 0.9% 1,000 ml @ 785 100 mls/hr IV .Q10H [facility] Rx#: [id number] Oral 800 1100 Output: Void Amount 450 2000 400 Other: Meal Nourishment/Supplement Breakfast Percent of Meal Consumed 75% 50% Feeding Ability Independent Independent Nourishment/Supplement name yogurt, chicken noodle soup Urine Appearance Cloudy Clear Clear Urine Color Bright Yellow Bright Yellow Bright Yellow Urine Odor Normal Stool Size Small Small Small Stool Color Yellow Yellow Brown Green Green Stool Consistency Loose Loose Rosi # Bowel Movements 1 1 General appearance: average body habitus, cooperative and no acute distress Head Head exam: Present atraumatic and normal inspection Eye Eye exam: Present normal appearance ENT ENT exam: Present mucous membranes moist, normal exam and normal external ear exam Neck Neck exam: Present normal inspection Respiratory Respiratory exam: Present normal respiratory exam Cardiovascular Cardiovascular exam: Present normal rate and rhythm GI/Abdominal GI/Abdominal exam: Present normal bowel sounds Back Exam Back exam: Present normal inspection Neurological Exam Neurological exam: Present alert and oriented X3 Skin Skin exam: Present intact and warm OBJ DATA Labs CBC & Chem 7: 06/22/21 06:12 06/22/21 06:12 Labs: Abnormal Lab Results 06/22/21 06/22/21 06/21/21 06:12 06:12 15:57 WBC RBC Hgb 10.6 L Hct 31.8 L MPV 11.0 H Neut % (Auto) 84.6 H Lymph % (Auto) 5.2 L Lymph # (Auto) 0.51 L [place] # (Auto) 0.95 H Seg Neutrophils % Lymphocytes % Absolute Neutrophils 8.33 H VBG Lactic Acid < 0.2 L Sodium Potassium 2.8 L* Chloride Carbon Dioxide 18 L Anion Gap 17.0 H BUN 49 H Creatinine 1.5 H POC Creatinine Glucose 143 H Calcium AST 111 H ALT 57 H Albumin 3.1 L Albumin/Globulin Ratio 0.8 L Urine Appearance Urine Protein Ur Leukocyte Esterase Urine RBC Urine WBC Ur Squamous Epith Cells Urine Bacteria Hyaline Casts Urine Mucus 06/21/21 06/21/21 06/21/21 11:43 11:04 10:30 WBC RBC Hgb Hct MPV Neut % (Auto) Lymph % (Auto) Lymph # (Auto) [place] # (Auto) Seg Neutrophils % Lymphocytes % Absolute Neutrophils VBG Lactic Acid Sodium 127 L Potassium 3.0 L Chloride 93 L Carbon Dioxide 18 L Anion Gap BUN 59 H Creatinine 2.8 H POC Creatinine 3.0 H Glucose 111 H Calcium 8.3 L AST 67 H ALT Albumin 3.1 L Albumin/Globulin Ratio 0.9 L Urine Appearance Cloudy A Urine Protein 100 A Ur Leukocyte Esterase 500 A Urine RBC 43 H Urine WBC > 182 H Ur Squamous Epith Cells 6 H Urine Bacteria Mod A Hyaline Casts 14 H Urine Mucus Few A 06/21/21 10:30 WBC 13.3 H RBC 3.56 L Hgb 10.2 L Hct 29.9 L MPV 10.9 H Neut % (Auto) Lymph % (Auto) Lymph # (Auto) [place] # (Auto) Seg Neutrophils % 82 H Lymphocytes % 5 L Absolute Neutrophils VBG Lactic Acid Sodium Potassium Chloride Carbon Dioxide Anion Gap BUN Creatinine POC Creatinine Glucose Calcium AST ALT Albumin Albumin/Globulin Ratio Urine Appearance Urine Protein Ur Leukocyte Esterase Urine RBC Urine WBC Ur Squamous Epith Cells Urine Bacteria Hyaline Casts Urine Mucus Meds: Medications Acetaminophen (Acetaminophen 325 Mg Tablet) 650 mg PO Q6HP PRN; Protocol PRN Reason: Per Pain Protocol/Fever > 101 Last Admin: 06/22/21 07:38 Dose: 650 mg Documented by: Albuterol/Ipratropium (Ipratropium/Albuterol 3 Ml Ampul.Neb) 3 ml NEB Q4HRT PRN PRN Reason: Wheezing Amlodipine Besylate (Amlodipine 10 Mg Tablet) 5 mg PO DAILY [facility] Last Admin: 06/22/21 09:59 Dose: 5 mg Documented by: Aspirin (Aspirin 81 Mg Tab.Chew) 81 mg PO DAILY [facility] Last Admin: 06/22/21 09:58 Dose: 81 mg Documented by: Dextrose (Dextrose 50% 50 Ml Vial) 0 ml IV UD PRN PRN Reason: Hypoglycemia Diagnostic Test (Pha) (Accu-Chek 1 Each Strip) 1 each FS ACHS [facility] Last Admin: 06/22/21 07:23 Dose: 1 each Documented by: Docusate Sodium (Docusate Sodium 100 Mg Capsule) 100 mg PO BID [facility] Last Admin: 06/22/21 10:02 Dose: Not Given Documented by: Fluticasone Propionate (Fluticasone Propionate [place]) 1 spray NS BID [facility] Last Admin: 06/22/21 09:45 Dose: Not Given Documented by: Glucosamine/Chondroitin (Glucosamine/Chondroitin Sulf A 1 Cap Capsule) 2 cap PO DAILY [facility] Last Admin: 06/22/21 09:46 Dose: Not Given Documented by: Glucose (Dextrose 31 Gm Oral.Susp) 15 gm PO PRN PRN PRN Reason: Hypoglycemia Heparin Sodium (Porcine) (Heparin 5,000 Unit/Ml Vial) 5,000 unit SQ Q12 [facility] Last Admin: 06/22/21 10:11 Dose: 5,000 unit Documented by: Sodium Chloride (Sodium Chloride 0.9%) 1,000 mls @ 100 mls/hr IV .Q10H [facility] Last Admin: 06/22/21 04:00 Dose: 100 mls/hr Documented by: Ceftriaxone Sodium 2 gm/ (Dextrose) 50 mls @ 100 mls/hr IV Q24H [facility] Last Admin: 06/22/21 10:03 Dose: 100 mls/hr Documented by: Insulin Human Lispro (Insulin Lispro 1 Unit/0.01 Ml Unit) 0 unit SQ ACHS [facility]; Protocol Last Admin: 06/22/21 07:26 Dose: Not Given Documented by: Iron Carb/Multivit/[place]/Folic Acid (Multivit,Ther Iron,Ca,Fa & Min 1 Tablet) 1 tab PO DAILY [facility] Last Admin: 06/22/21 09:46 Dose: Not Given Documented by: Levothyroxine Sodium (Levothyroxine 125 Mcg Tablet) 150 mcg PO DAILY [facility] Last Admin: 06/22/21 09:57 Dose: 150 mcg Documented by: Loratadine (Loratadine 10 Mg Tablet) 10 mg PO DAILY [facility] Last Admin: 06/22/21 09:45 Dose: Not Given Documented by: Metoprolol Tartrate (Metoprolol Tartrate 25 Mg Tablet) 25 mg PO BID [facility] Last Admin: 06/22/21 09:58 Dose: 25 mg Documented by: Morphine Sulfate (Morphine 4 Mg/Ml Vial) 4 mg IV Q4HP PRN; Protocol PRN Reason: Per Pain Protocol Multivitamins/Minerals (Vit A,C & E/Lutein/Minerals Tablet) 1 tab PO DAILY [facility] Last Admin: 06/22/21 09:46 Dose: Not Given Documented by: Ondansetron HCl (Ondansetron 4 Mg/2 Ml Vial) 4 mg IV Q6HP PRN PRN Reason: Nausea And Vomiting Oxycodone HCl (Oxycodone Hcl 5 Mg Tablet) 5 mg PO Q4HP PRN; Protocol PRN Reason: Per Pain Protocol Lysine Hcl 500 Mg (Tablet) 1 dose PO BID [facility] Last Admin: 06/22/21 09:46 Dose: Not Given Documented by: Potassium Chloride (Potassium Chloride 20 Meq Tablet) 20 meq PO BID [facility] Last Admin: 06/22/21 09:59 Dose: 20 meq Documented by: Senna (Sennosides 1 Tablet) 2 tab PO HS [facility] Last Admin: 06/21/21 20:52 Dose: Not Given Documented by: Sodium Chloride (0.9 % Sodium Chloride 10 Ml Syringe) 10 ml IV Q8 [facility] Last Admin: 06/22/21 04:00 Dose: Not Given Documented by: Zinc Sulfate (Zinc Sulfate 50 Mg Capsule) 50 mg PO DAILY [facility] Last Admin: 06/22/21 10:03 Dose: Not Given Documented by: Zolpidem Tartrate (Zolpidem 5 Mg Tablet) 5 mg PO HSP PRN PRN Reason: Insomnia A/P Assessment and plan (1) Acute pyelonephritis: Status: Acute (2) Stage 2 acute kidney injury: Status: Acute (3) Hyponatremia: Status: Acute (4) Hypothyroidism: Status: Chronic (5) GERD (gastroesophageal reflux disease): Status: Chronic (6) T2DM (type 2 diabetes mellitus): Status: Acute (7) Hypokalemia: Status: Acute (8) Peripheral vascular disease: Status: Acute (9) Anemia, normocytic normochromic: Status: Acute Narrative A/P Narrative: Assessment and Plans: 1. Left pyelonephritis: Stays in inpatient med surg Serial lactic acid Blood culture, no growth to date Urine culture, no growth to date cbc w/ auto diff in the morning to trend WBC Rocephin s/p fluid bolus given in the ED, to be followed by NS@100cc/hr Tylenol PRN fever 2. Peripheral vescular disease: Continue aspirin Continue statin therapy 3. Essential HTN: Currently normotensive Continue Amlodipine and Beta judd 4. Stage 2 acute kidney injury: Likely secondary to pyelonephritis, CT abdomen pelvis shows no hydronephrosis or obstruction Baseline serum Cr level of 0.66, 2.8 at admission, today at 1.5 Avoid nephrotoxic agents s/p fluid bolus given in the ED, to be followed by NS@100cc/hr CMP in the morning to trend kidney functions 5. Hyponatremia: RESOLVED s/p fluid bolus given in the ED, to be followed by NS@100cc/hr CMP in the morning to trend serum sodium level 6. Hypokalemia: Continue potassium chloride oral replacement CMP in the morning to trend serum potassium level Also check serum Mg level and replace if needed 7. Anemia, normocytic normochromic: cbc w/ auto diff in the morning to trend H/H 8. Hypothyroidism: Continue oral thyroid replacement therapy 9. GERD: Continue oral PPI from home regimen 10. T2DM: HgA1c Hold oral hypoglycemics Low dose correctional scale insulin AC HS Accu Chek AC HS Hypoglycemia protocol Diabetic diet GI ppx: oral PPI from home regimen DVT ppx: Heparin Code status: Full Prognosis: guarded Disposition: Inpatient med surg Time Spent With Patient Time: Total time spent is greater than 50% in coordination of care (as documented) at patient's floor/unit and/or counseling patient: Total time spent with greater than 50% in coordination of care (as documented) at patient's floor/unit and/or counseling patient:: Greater than 35 minutes
[2021-06-22] MEDS ORDERED: POTASSIUM CHLORIDE 20 MEQ TABLET PO ONE (14:30)
--- NOTE | 2021-06-22 14:38 | Internal Med Progress Note ---
SUBJECTIVE Subjective Patient information: Note initiated : 06/22/21 at 2:29 pm Service Date, if different from initiated Date: [] Patient: Carlota Sparrow a 76 y/o F admitted on 06/21/21 for Weakness, Fever. Chief Complaint: [] Interval history: Ms. Sparrow is a 76 year old F history of T2DM, peripheral vesicular disease, essential HTN, p/w 1 week history of general body weakness, left upper back pain, and decreased appetite. She denies prior or recent history of UTI. Over the past week, she is complaining of left sided back pain, associated with general body weakness and decreased appetite. She is also c/o fever and chills with Tmax 103 a few days ago. She denies any dysuria or change in urinary frequency or urgency. She presented to our ED today for evaluation of her symptoms. Vital signs all within normal limits. Labs significant for leukocytosis with WBC 13.3. Serum sodium and potassium 127 and 3.0, respectively. Serum Cr level 2.8 with baseline 0.66. UA indicative of presence of UTI. CT abdomen pelvis w/o showing mild edema or inflammation throughout the left kidney with perinephric stranding suggestive of pyelonephritis. No evidence of hydronephrosis or obstructing stone. 06/22: Afebrile overnight. Blood and urine cultures no growth to date. c/o fever and chills. c/o general body weakness. Denies back pain. Denies dysuria. Good appetite. On IV fluid and Rocephin. Constitutional Vitals: Vital Signs Temp Pulse Resp BP Pulse Ox 97.4 F 81 16 143/62 97 06/22/21 12:00 06/22/21 12:00 06/22/21 12:00 06/22/21 12:00 06/22/21 12:00 Period Temp Pulse Resp BP Sys/Patterson Pulse Ox Last 24 Hr 97.4 F-99.6 F 66-88 16-24 132-158/51-69 95-100 Intake and Output 06/22/21 06/22/21 06/22/21 05:59 13:59 21:59 Intake Total 1585 1993 Output Total 1999 700 300 Balance -415 1293 -300 Weight 82.463 kg Patient Weight 06/23/21 05:59 Weight 82.463 kg Intake & Output: Intake & Output 06/22/21 06/22/21 06/22/21 05:59 13:59 21:59 Intake Total 1585 1992 Output Total 1999 300 Balance -415 1293 -300 Weight 82.463 kg Intake: IV 785 893 Sodium Chloride 0.9% 1,000 ml @ 785 843 100 mls/hr IV .Q10H UMA[facility] Rx#: [id number] Rocephin 2 gm In Dextrose 5% in 50 Water 50 ml @ 100 mls/hr IV Q24H UMAIR Rx#:[id number] Oral 800 1100 Output: Void Amount 1999 700 300 Other: Meal Lunch Percent of Meal Consumed 100% Feeding Ability Independent Urine Appearance Clear Clear Clear Urine Color Bright Yellow Bright Yellow Bright Yellow Urine Odor Normal Normal Stool Size Small Small Stool Color Yellow Brown Green Stool Consistency Loose Loose # Bowel Movements 1 1 Exam: General: Alert, Awake, No acute Distress, obese Eyes/N/T: EOMI, Head/Neck: neck supple, CV: RRR, No murmurs, Pulm: Clear b/l, no wheezing/rhonchi/rales Abd: soft, nontender, +BS x4 Ext: no clubbing/cyanosis/edema Neuro: Alert, no focal deficits, moves all extremities, Skin: warm/dry OBJ DATA Labs CBC & Chem 7: 06/22/21 06:12 06/22/21 06:12 Labs: Abnormal Lab Results 06/22/21 06/22/21 06/21/21 06:12 06:12 15:57 WBC RBC Hgb 10.6 L Hct 31.8 L MPV 11.0 H Neut % (Auto) 84.6 H Lymph % (Auto) 5.2 L Lymph # (Auto) 0.51 L [place] # (Auto) 0.95 H Seg Neutrophils % Lymphocytes % Absolute Neutrophils 8.33 H VBG Lactic Acid < 0.2 L Sodium Potassium 2.8 L* Chloride Carbon Dioxide 18 L Anion Gap 17.0 H BUN 49 H Creatinine 1.5 H POC Creatinine Glucose 143 H Calcium AST 111 H ALT 57 H Albumin 3.1 L Albumin/Globulin Ratio 0.8 L Urine Appearance Urine Protein Ur Leukocyte Esterase Urine RBC Urine WBC Ur Squamous Epith Cells Urine Bacteria Hyaline Casts Urine Mucus 06/21/21 06/21/21 06/21/21 11:43 11:04 10:30 WBC RBC Hgb Hct MPV Neut % (Auto) Lymph % (Auto) Lymph # (Auto) [place] # (Auto) Seg Neutrophils % Lymphocytes % Absolute Neutrophils VBG Lactic Acid Sodium 127 L Potassium 3.0 L Chloride 93 L Carbon Dioxide 18 L Anion Gap BUN 59 H Creatinine 2.8 H POC Creatinine 3.0 H Glucose 111 H Calcium 8.3 L AST 67 H ALT Albumin 3.1 L Albumin/Globulin Ratio 0.9 L Urine Appearance Cloudy A Urine Protein 100 A Ur Leukocyte Esterase 500 A Urine RBC 43 H Urine WBC > 182 H Ur Squamous Epith Cells 6 H Urine Bacteria Mod A Hyaline Casts 14 H Urine Mucus Few A 06/21/21 10:30 WBC 13.3 H RBC 3.56 L Hgb 10.2 L Hct 29.9 L MPV 10.9 H Neut % (Auto) Lymph % (Auto) Lymph # (Auto) [place] # (Auto) Seg Neutrophils % 82 H Lymphocytes % 5 L Absolute Neutrophils VBG Lactic Acid Sodium Potassium Chloride Carbon Dioxide Anion Gap BUN Creatinine POC Creatinine Glucose Calcium AST ALT Albumin Albumin/Globulin Ratio Urine Appearance Urine Protein Ur Leukocyte Esterase Urine RBC Urine WBC Ur Squamous Epith Cells Urine Bacteria Hyaline Casts Urine Mucus Meds: Medications Acetaminophen (Acetaminophen 325 Mg Tablet) 650 mg PO Q6HP PRN; Protocol PRN Reason: Per Pain Protocol/Fever > 101 Last Admin: 06/22/21 07:38 Dose: 650 mg Documented by: Albuterol/Ipratropium (Ipratropium/Albuterol 3 Ml Ampul.Neb) 3 ml NEB Q4HRT PRN PRN Reason: Wheezing Amlodipine Besylate (Amlodipine 10 Mg Tablet) 5 mg PO DAILY [facility] Last Admin: 06/22/21 09:59 Dose: 5 mg Documented by: Aspirin (Aspirin 81 Mg Tab.Chew) 81 mg PO DAILY [facility] Last Admin: 06/22/21 09:58 Dose: 81 mg Documented by: Dextrose (Dextrose 50% 50 Ml Vial) 0 ml IV UD PRN PRN Reason: Hypoglycemia Diagnostic Test (Pha) (Accu-Chek 1 Each Strip) 1 each FS ACHS [facility] Last Admin: 06/22/21 11:51 Dose: 1 each Documented by: Docusate Sodium (Docusate Sodium 100 Mg Capsule) 100 mg PO BID [facility] Last Admin: 06/22/21 10:02 Dose: Not Given Documented by: Fluticasone Propionate (Fluticasone Propionate [place].López) 1 spray NS BID [facility] Last Admin: 06/22/21 09:45 Dose: Not Given Documented by: Glucosamine/Chondroitin (Glucosamine/Chondroitin Sulf A 1 Cap Capsule) 2 cap PO DAILY [facility] Last Admin: 06/22/21 09:46 Dose: Not Given Documented by: Glucose (Dextrose 31 Gm Oral.Susp) 15 gm PO PRN PRN PRN Reason: Hypoglycemia Heparin Sodium (Porcine) (Heparin 5,000 Unit/Ml Vial) 5,000 unit SQ Q12 [facility] Last Admin: 06/22/21 10:11 Dose: 5,000 unit Documented by: Sodium Chloride (Sodium Chloride 0.9%) 1,000 mls @ 100 mls/hr IV .Q10H [facility] Last Admin: 06/22/21 12:26 Dose: 100 mls/hr Documented by: Ceftriaxone Sodium 2 gm/ (Dextrose) 50 mls @ 100 mls/hr IV Q24H [facility] Last Infusion: 06/22/21 10:35 Dose: Infused Documented by: Insulin Human Lispro (Insulin Lispro 1 Unit/0.01 Ml Unit) 0 unit SQ ACHS [facility]; Protocol Last Admin: 06/22/21 12:02 Dose: 2 units Documented by: Iron Carb/Multivit/Wirt/Folic Acid (Multivit,Ther Iron,Ca,Fa & Min 1 Tablet) 1 tab PO DAILY [facility] Last Admin: 06/22/21 09:46 Dose: Not Given Documented by: Levothyroxine Sodium (Levothyroxine 125 Mcg Tablet) 150 mcg PO DAILY [facility] Last Admin: 06/22/21 09:57 Dose: 150 mcg Documented by: Loratadine (Loratadine 10 Mg Tablet) 10 mg PO DAILY [facility] Last Admin: 06/22/21 09:45 Dose: Not Given Documented by: Metoprolol Tartrate (Metoprolol Tartrate 25 Mg Tablet) 25 mg PO BID [facility] Last Admin: 06/22/21 09:58 Dose: 25 mg Documented by: Morphine Sulfate (Morphine 4 Mg/Ml Vial) 4 mg IV Q4HP PRN; Protocol PRN Reason: Per Pain Protocol Multivitamins/Minerals (Vit A,C & E/Lutein/Minerals Tablet) 1 tab PO DAILY [facility] Last Admin: 06/22/21 09:46 Dose: Not Given Documented by: Ondansetron HCl (Ondansetron 4 Mg/2 Ml Vial) 4 mg IV Q6HP PRN PRN Reason: Nausea And Vomiting Oxycodone HCl (Oxycodone Hcl 5 Mg Tablet) 5 mg PO Q4HP PRN; Protocol PRN Reason: Per Pain Protocol Lysine Hcl 500 Mg (Tablet) 1 dose PO BID [facility] Last Admin: 06/22/21 09:46 Dose: Not Given Documented by: Potassium Chloride (Potassium Chloride 20 Meq Tablet) 20 meq PO BID [facility] Last Admin: 06/22/21 09:59 Dose: 20 meq Documented by: Senna (Sennosides 1 Tablet) 2 tab PO HS [facility] Last Admin: 06/21/21 20:52 Dose: Not Given Documented by: Sodium Chloride (0.9 % Sodium Chloride 10 Ml Syringe) 10 ml IV Q8 [facility] Last Admin: 06/22/21 14:10 Dose: Not Given Documented by: Zinc Sulfate (Zinc Sulfate 50 Mg Capsule) 50 mg PO DAILY [facility] Last Admin: 06/22/21 10:03 Dose: Not Given Documented by: Zolpidem Tartrate (Zolpidem 5 Mg Tablet) 5 mg PO HSP PRN PRN Reason: Insomnia A/P Narrative A/P Narrative: A: *Left pyelonephritis (GNB) & Cysitis: -Blood/urine culture no growth to date -Leukocytosis resolved *HO on ?CKD: Likely secondary to pyelonephritis, CT abdomen pelvis shows no h ydronephrosis or obstruction -improving *Hyponatremia: RESOLVED *Hypokalemia: *Anemia, normocytic normochromic: *PVD: Continue aspirin/statin *HTN: cont Amlodipine /BB *Hypothyroidism: *GERD: *DM: HgA1c 10.2, poorly controlled *Obesity: *Deconditioning/debility: Uses walker due to h/o falls P: -Rocephin, pending UC -NS IVF -Replace electrolytes -cont norvasc/BB -hold ARB/HCTZ for HO, will not restart HCTZ d/t hyponatremia -SSI -pt/ot -ppx: Heparin / home ppi Code status: Facilitator Spent With Patient Time: Total time spent is greater than 50% in coordination of care (as documented) at patient's floor/unit and/or counseling patient:
--- NOTE | 2021-06-22 16:06 | Discharge Summary ---
Discharge Provider Provider Patient information: Note initiated : 06/22/21 at 4:05 pm Service Date, if different from initiated Date: [] Patient: Carlota Sparrow 76 y/o F admitted on 06/21/21 for Weakness, Fever. Chief Complaint: [] Date of admission: 06/21/21 16:55 Discharge date: 06/23/21 Primary care physician: Sandrita Motta Consults: 06/21/21 Consult to Physician [CONS] Stat Comment: Consulting Provider: Lewis Calvin Reason For Exam: Physician to Consult 06/21/21 15:45 Consult to Physician [CONS] Stat Comment: Consulting Provider: Lewis Calvin Reason For Exam: Physician to Consult Discharge Meds Discharge Medications Home Medications levothyroxine 125 mcg tablet 150 mcg PO DAILY 05/13/16 [History Confirmed 06/21/21 Last Taken 06/21/21 08:00] amlodipine 10 mg tablet 10 mg PO DAILY 05/22/17 [History Confirmed 06/22/21 Last Taken 06/20/21 16:00] aspirin 81 mg chewable tablet (Bundle It Chewable Low Dose Aspirin) 81 mg PO DAILY 05/22/17 [History Confirmed 06/21/21 Last Taken 06/20/21 16:00] glucosamin 375 mg-chond 300 mg-collagen 50 mg-hyaluronic acid 2 mg cap 2 ea PO DAILY 05/22/17 [History Confirmed 06/21/21 Last Taken 06/20/21 18:00] lysine HCl 500 mg tablet 1,000 mg PO QPM 05/22/17 [History Confirmed 06/22/21 Last Taken 06/20/21 20:00] metoprolol tartrate 25 mg tablet 25 mg PO BID 05/22/17 [History Confirmed 06/21/21 Last Taken 06/21/21 08:00] cmyqernlrtfx-chtfibby-zwyj fumarate 7.5 mg-folic acid 400 mcg tablet 1 ea PO DAILY 05/22/17 [History Confirmed 06/21/21 Last Taken 06/20/21 08:00] potassium chloride 20 mEq tablet,extended release(part/cryst) (Klor-Con M) 20 meq PO BID 05/22/17 [History Confirmed 06/21/21 Last Taken 06/20/21 18:00] acetaminophen 650 mg tablet,extended release 1,300 mg PO Q12H PRN 06/22/21 [History Confirmed 06/22/21 Last Taken Unknown] atorvastatin 10 mg tablet 10 mg PO QHS 06/22/21 [History Confirmed 06/22/21 Last Taken 06/19/21] coenzyme Q10 100 mg capsule (Co Q-10) 100 mg PO QDAY 06/22/21 [History Confirmed 06/22/21 Last Taken 06/20/21 08:00] fenofibrate nanocrystallized 145 mg tablet 145 mg PO QDAY 06/22/21 [History Confirmed 06/22/21 Last Taken 06/14/21] isosorbide mononitrate 30 mg tablet,extended release 24 hr 60 mg PO QAM 06/22/21 [History Confirmed 06/22/21 Last Taken 06/20/21 08:00] ketorolac 0.5 % eye drops 1 drp OPHTHALMIC (EYE) PRN PRN 06/22/21 [History Confirmed 06/22/21 Last Taken Unknown] lutein 20 mg-zeaxanthin 1,000 mcg capsule 1 cap PO DAILY 06/22/21 [History Confirmed 06/22/21 Last Taken 06/20/21 08:00] metformin 500 mg tablet 500 mg PO BID 06/22/21 [History Confirmed 06/22/21 Last Taken 06/20/21 08:00] levofloxacin 750 mg tablet 750 mg PO Q24H #7 tab 06/23/21 [Rx Last Taken Unknown] losartan 100 mg tablet 100 mg PO QDAY #30 tab 06/23/21 [Rx Last Taken Unknown] COURSE Hospital Course Hospital course: Interval history: Ms. Sparrow is a 76 year old F history of T2DM, peripheral vesicular disease, essential HTN, p/w 1 week history of general body weakness, left upper back pain, and decreased appetite. She denies prior or recent history of UTI. Over the past week, she is complaining of left sided back pain, associated with general body weakness and decreased appetite. She is also c/o fever and chills with Tmax 103 a few days ago. She denies any dysuria or change in urinary frequency or urgency. She presented to our ED today for evaluation of her symptoms. Vital signs all within normal limits. Labs significant for leukocytosis with WBC 13.3. Serum sodium and potassium 127 and 3.0, respectively. Serum Cr level 2.8 with baseline 0.66. UA indicative of presence of UTI. CT abdomen pelvis w/o showing mild edema or inflammation throughout the left kidney with perinephric stranding suggestive of pyelonephritis. No evidence of hydronephrosis or obstructing stone. 06/22: Afebrile overnight. Blood and urine cultures no growth to date. c/o fever and chills. c/o general body weakness. Denies back pain. Denies dysuria. Good appetite. On IV fluid and Rocephin. 06/23 Patient doing well. No overnight event or new complaints. Laboratory improved. Micro showing Klebsiella pneumonia and E. coli pansensitive. A: *Left pyelonephritis (Klebsiella pneumonia and E. coli) & Cysitis: *HO on ?CKD: Likely secondary to pyelonephritis, CT abdomen pelvis shows no hydronephrosis or obstruction *Hyponatremia: RESOLVED *Hypokalemia: *Anemia, normocytic normochromic: *PVD: Continue aspirin/statin *HTN: cont Amlodipine /BB *Hypothyroidism: *GERD: *DM: HgA1c 10.2, poorly controlled *Deconditioning/debility: Uses walker due to h/o falls Discharge diagnosis: Left pyelonephritis and cystitis acute kidney injury electrolyte abnormalit Secondary discharge diagnosis: Anemia prevascular disease hypertension hypothyroidism GERD diabetes conditioning and debility [place] Time Spent with Patient Time attestation: Total time spent providing and/or coordinating discharge services: Time spent: Greater than 30 minutes EXAM Constitutional Vitals: Temp Pulse Resp BP Pulse Ox 97.4 F 81 16 143/62 97 06/22/21 12:00 06/22/21 12:00 06/22/21 12:00 06/22/21 12:00 06/22/21 12:00 Discharge Data Data Completed and Pending Labs on day of discharge: Labs from last 24 hours 06/22/21 06/22/21 06/21/21 06:12 06:12 15:57 WBC 9.9 RBC 3.75 Hgb 10.6 L Hct 31.8 L MCV 84.8 MCH 28.3 MCHC 33.3 RDW 14.1 Plt Count 250 MPV 11.0 H Neut % (Auto) 84.6 H Lymph % (Auto) 5.2 L [place] % (Auto) 9.6 Eos % (Auto) 0.3 Baso % (Auto) 0.3 Lymph # (Auto) 0.51 L [place] # (Auto) 0.95 H Eos # (Auto) 0.03 Baso # (Auto) 0.03 Absolute Neutrophils 8.33 H VBG Lactic Acid < 0.2 L Sodium 135 Potassium 2.8 L* Chloride 100 Carbon Dioxide 18 L Anion Gap 17.0 H BUN 49 H Creatinine 1.5 H GFR Calculation 33 Glucose 143 H Calcium 8.6 Phosphorus 3.4 Magnesium 2.1 Total Bilirubin 0.5 AST 111 H ALT 57 H Alkaline Phosphatase 100 Total Protein 6.8 Albumin 3.1 L Globulin 3.7 Albumin/Globulin Ratio 0.8 L Preliminary micro results at discharge 06/21/21 17:22 Urine Culture - Preliminary Urine - Clean Void Mid-Stream Gram negative bacillus Gram negative bacillus#2 Discharge Plan Patient/Caregiver Discharge Instructions Activity: increase activity as tolerated Diet: Consistent Carbohydrate Prescriptions: New levofloxacin 750 mg tablet 750 mg PO Q24H Qty: 7 0RF losartan 100 mg tablet 100 mg PO QDAY Qty: 30 0RF Continued levothyroxine 125 MCG tablet 150 mcg PO DAILY 0RF potassium chloride [Klor-Con M20] 20 MEQ tablet,ER particles/crystals 20 meq PO BID 0RF amlodipine 10 MG tablet 10 mg PO DAILY 0RF aspirin [Sridhar Chewable Aspirin] 81 MG tablet,chewable 81 mg PO DAILY 0RF metoprolol tartrate 25 MG tablet 25 mg PO BID 0RF blvwuamw-mgrv-ifqbdk-hyalur ac 1 EACH capsule 2 ea PO DAILY 0RF lysine HCl 500 MG tablet 1,000 mg PO QPM 0RF ljxyqlky-dud-byig fum-folic ac 1 EACH tablet 1 ea PO DAILY 0RF isosorbide mononitrate 30 mg Tablet Extended Release 24 Hr 60 mg PO QAM 0RF atorvastatin 10 mg Tablet 10 mg PO QHS 0RF fenofibrate nanocrystallized 145 mg Tablet 145 mg PO QDAY 0RF ketorolac 0.5 % Drops 1 drp OPHTHALMIC (EYE) PRN PRN (Reason: Inflammation) 0RF lutein-zeaxanthin 20 mg- 1,000 mcg Capsule 1 cap PO DAILY 0RF metformin 500 mg Tablet 500 mg PO BID 0RF acetaminophen 650 mg Tablet Extended Release 1,300 mg PO Q12H PRN (Reason: Pain) 0RF coenzyme Q10 [Co Q-10] 100 mg Capsule 100 mg PO QDAY 0RF Discontinued losartan-hydrochlorothiazide 1 EACH tablet 1 ea PO DAILY 0RF losartan-hydrochlorothiazide 100-25 mg Tablet 1 tab PO QDAY 0RF Follow Up Plan Follow up with: Sandrita Motta MD [Primary Care Provider] - Patient Disposition: Home, Self-Care Prognosis: Fair Overall status at discharge: patient is progressing back to baseline Discharge Orders: Discharge Order (Routine); Ordered 06/23/21 Ordered By: Charles Langley
[2021-06-22] MEDS: SENNOSIDES 1 TABLET PO SCH (21:45)
[2021-06-23] MEDS: 0.9 % SODIUM CHLORIDE 1,000 ML IV SCH (04:02)
[2021-06-23] MEDS: 0.9 % SODIUM CHLORIDE 10 ML SYRINGE IV SCH ×2 (04:03→13:35)
[2021-06-23] MEDS: ACETAMINOPHEN 325 MG TABLET PO PRN (04:42)
[2021-06-23] MEDS: INSULIN LISPRO 1 UNIT/0.01 ML UNIT SQ SCH ×2 (07:20→12:46)
[2021-06-23 08:11] LABS: ALT/SGPT 56 U/L (<40); AST/SGOT 75 U/L (<32); Albumin 2.6 gm/dL (3.2-5.2); Albumin/Globulin Ratio 0.7 (1.0-2.3); Alkaline Phosphatase 107 U/L (39-117); Bilirubin,Direct < 0.2 mg/dL (0-0.3); Bilirubin,Total 0.3 mg/dL (0.1-1.0); Blood Urea Nitrogen 28 mg/dL (8-23); Calcium 8.5 mg/dL (8.6-10.4); Carbon Dioxide 19 mmol/L (22-30); Chloride 103 mmol/L (96-108); Globulin 3.5 gm/dL (2.2-3.7); Glomerular Filtration Rate 71; Glucose 147 mg/dL (70-105); Lactate Dehydrogenase 220 U/L (135-225); Triglycerides 452 mg/dL (<150); Uric Acid 6.9 mg/dL (2.5-8.0)
[2021-06-23] MEDS ORDERED: POTASSIUM CHLORIDE 20 MEQ TABLET PO ONE (08:33)
[2021-06-23] MEDS ORDERED: POTASSIUM PHOSPHATE 20 MEQ in DEXTROSE 5% IN WATER 250 ML IV ONE (08:33)
[2021-06-23] MEDS ORDERED: NEUTRA PHOS 1 PACKET PO ONE (08:34)
--- NOTE | 2021-06-23 08:36 | Internal Med Progress Note ---
SUBJECTIVE Subjective Patient information: Note initiated : 06/23/21 at 8:32 am Service Date, if different from initiated Date: [] Patient: Carlota Sparrow a 76 y/o F admitted on 06/21/21 for Weakness, Fever. Chief Complaint: [] Interval history: Ms. Sparrow is a 76 year old F history of T2DM, peripheral vesicular disease, essential HTN, p/w 1 week history of general body weakness, left upper back pain, and decreased appetite. She denies prior or recent history of UTI. Over the past week, she is complaining of left sided back pain, associated with general body weakness and decreased appetite. She is also c/o fever and chills with Tmax 103 a few days ago. She denies any dysuria or change in urinary frequency or urgency. She presented to our ED today for evaluation of her symptoms. Vital signs all within normal limits. Labs significant for leukocytosis with WBC 13.3. Serum sodium and potassium 127 and 3.0, respectively. Serum Cr level 2.8 with baseline 0.66. UA indicative of presence of UTI. CT abdomen pelvis w/o showing mild edema or inflammation throughout the left kidney with perinephric stranding suggestive of pyelonephritis. No evidence of hydronephrosis or obstructing stone. 06/22: Afebrile overnight. Blood and urine cultures no growth to date. c/o fever and chills. c/o general body weakness. Denies back pain. Denies dysuria. Good appetite. On IV fluid and Rocephin. Constitutional Vitals: Vital Signs Temp Pulse Resp BP Pulse Ox 97.7 F 64 16 149/62 96 06/23/21 07:02 06/23/21 07:02 06/23/21 07:02 06/23/21 07:02 06/23/21 07:25 Period Temp Pulse Resp BP Sys/Patterson Pulse Ox Last 24 Hr 97.3 F-101.4 F 64-81 16-24 136-149/59-75 95-98 Intake and Output 06/22/21 06/23/21 06/23/21 21:59 05:59 13:59 Intake Total 1808 1200 Output Total 1050 950 475 Balance 758 250 -475 Weight 84.912 kg Intake & Output: Intake & Output 06/22/21 06/23/21 06/23/21 21:59 05:59 13:59 Intake Total 1808 1200 Output Total 1050 950 475 Balance 758 250 -475 Weight 84.912 kg Intake: IV 1008 Sodium Chloride 0.9% 1,000 ml @ 1008 75 mls/hr IV .[id number] [facility] Rx#: [id number] Oral 800 1200 Output: Void Amount 1050 950 475 Other: Urine Appearance Clear Clear Clear Urine Color Bright Yellow Bright Yellow Dark Yellow Urine Odor Normal Normal Stool Size Small Moderate Stool Color Brown Brown Stool Consistency Rosi Soft # Voids 1 1 # Bowel Movements 0 1 Exam: General: Alert, Awake, No acute Distress, obese Eyes/N/T: EOMI, Head/Neck: neck supple, CV: RRR, No murmurs, Pulm: Clear b/l, no wheezing/rhonchi/rales Abd: soft, nontender, +BS x4 Ext: no clubbing/cyanosis/edema Neuro: Alert, no focal deficits, moves all extremities, Skin: warm/dry OBJ DATA Labs CBC & Chem 7: 06/22/21 06:12 06/23/21 07:25 Labs: Abnormal Lab Results 06/23/21 06/22/21 06/22/21 07:25 06:12 06:12 WBC RBC Hgb 10.6 L Hct 31.8 L MPV 11.0 H Neut % (Auto) 84.6 H Lymph % (Auto) 5.2 L Lymph # (Auto) 0.51 L [place] # (Auto) 0.95 H Seg Neutrophils % Lymphocytes % Absolute Neutrophils 8.33 H VBG Lactic Acid Sodium Potassium 3.0 L 2.8 L* Chloride Carbon Dioxide 19 L 18 L Anion Gap 17.0 H BUN 28 H 49 H Creatinine 1.5 H POC Creatinine Glucose 147 H 143 H Calcium 8.5 L Phosphorus 2.0 L AST 75 H 111 H ALT 56 H 57 H Albumin 2.6 L 3.1 L Albumin/Globulin Ratio 0.7 L 0.8 L Triglycerides 452 H Urine Appearance Urine Protein Ur Leukocyte Esterase Urine RBC Urine WBC Ur Squamous Epith Cells Urine Bacteria Hyaline Casts Urine Mucus 06/21/21 06/21/21 06/21/21 15:57 11:43 11:04 WBC RBC Hgb Hct MPV Neut % (Auto) Lymph % (Auto) Lymph # (Auto) [place] # (Auto) Seg Neutrophils % Lymphocytes % Absolute Neutrophils VBG Lactic Acid < 0.2 L Sodium Potassium Chloride Carbon Dioxide Anion Gap BUN Creatinine POC Creatinine 3.0 H Glucose Calcium Phosphorus AST ALT Albumin Albumin/Globulin Ratio Triglycerides Urine Appearance Cloudy A Urine Protein 100 A Ur Leukocyte Esterase 500 A Urine RBC 43 H Urine WBC > 182 H Ur Squamous Epith Cells 6 H Urine Bacteria Mod A Hyaline Casts 14 H Urine Mucus Few A 06/21/21 06/21/21 10:30 10:30 WBC 13.3 H RBC 3.56 L Hgb 10.2 L Hct 29.9 L MPV 10.9 H Neut % (Auto) Lymph % (Auto) Lymph # (Auto) [place] # (Auto) Seg Neutrophils % 82 H Lymphocytes % 5 L Absolute Neutrophils VBG Lactic Acid Sodium 127 L Potassium 3.0 L Chloride 93 L Carbon Dioxide 18 L Anion Gap BUN 59 H Creatinine 2.8 H POC Creatinine Glucose 111 H Calcium 8.3 L Phosphorus AST 67 H ALT Albumin 3.1 L Albumin/Globulin Ratio 0.9 L Triglycerides Urine Appearance Urine Protein Ur Leukocyte Esterase Urine RBC Urine WBC Ur Squamous Epith Cells Urine Bacteria Hyaline Casts Urine Mucus Meds: Medications Acetaminophen (Acetaminophen 325 Mg Tablet) 650 mg PO Q6HP PRN; Protocol PRN Reason: Per Pain Protocol/Fever > 101 Last Admin: 06/23/21 04:42 Dose: 650 mg Documented by: Albuterol/Ipratropium (Ipratropium/Albuterol 3 Ml Ampul.Neb) 3 ml NEB Q4HRT PRN PRN Reason: Wheezing Amlodipine Besylate (Amlodipine 10 Mg Tablet) 5 mg PO DAILY [facility] Last Admin: 06/22/21 09:59 Dose: 5 mg Documented by: Aspirin (Aspirin 81 Mg Tab.Chew) 81 mg PO DAILY [facility] Last Admin: 06/22/21 09:58 Dose: 81 mg Documented by: Dextrose (Dextrose 50% 50 Ml Vial) 0 ml IV UD PRN PRN Reason: Hypoglycemia Diagnostic Test (Pha) (Accu-Chek 1 Each Strip) 1 each FS ACHS [facility] Last Admin: 06/23/21 07:15 Dose: 1 each Documented by: Docusate Sodium (Docusate Sodium 100 Mg Capsule) 100 mg PO BID [facility] Last Admin: 06/22/21 21:42 Dose: 100 mg Documented by: Fluticasone Propionate (Fluticasone Propionate [place].López) 1 spray NS BID [facility] Last Admin: 06/22/21 21:45 Dose: Not Given Documented by: Glucosamine/Chondroitin (Glucosamine/Chondroitin Sulf A 1 Cap Capsule) 2 cap PO DAILY [facility] Last Admin: 06/22/21 09:46 Dose: Not Given Documented by: Glucose (Dextrose 31 Gm Oral.Susp) 15 gm PO PRN PRN PRN Reason: Hypoglycemia Heparin Sodium (Porcine) (Heparin 5,000 Unit/Ml Vial) 5,000 unit SQ Q12 [facility] Last Admin: 06/22/21 21:42 Dose: 5,000 unit Documented by: Ceftriaxone Sodium 2 gm/ (Dextrose) 50 mls @ 100 mls/hr IV Q24H [facility] Last Infusion: 06/22/21 10:35 Dose: Infused Documented by: Sodium Chloride (Sodium Chloride 0.9%) 1,000 mls @ 75 mls/hr IV .[id number] [facility] Last Admin: 06/23/21 04:02 Dose: Not Given Documented by: Insulin Human Lispro (Insulin Lispro 1 Unit/0.01 Ml Unit) 0 unit SQ ACHS [facility]; Protocol Last Admin: 06/23/21 07:20 Dose: 1 units Documented by: Iron Carb/Multivit/[place]/Folic Acid (Multivit,Ther Iron,Ca,Fa & Min 1 Tablet) 1 tab PO DAILY [facility] Last Admin: 06/22/21 09:46 Dose: Not Given Documented by: Levothyroxine Sodium (Levothyroxine 125 Mcg Tablet) 150 mcg PO DAILY [facility] Last Admin: 06/22/21 09:57 Dose: 150 mcg Documented by: Loratadine (Loratadine 10 Mg Tablet) 10 mg PO DAILY [facility] Last Admin: 06/22/21 09:45 Dose: Not Given Documented by: Metoprolol Tartrate (Metoprolol Tartrate 25 Mg Tablet) 25 mg PO BID [facility] Last Admin: 06/22/21 21:44 Dose: 25 mg Documented by: Morphine Sulfate (Morphine 4 Mg/Ml Vial) 4 mg IV Q4HP PRN; Protocol PRN Reason: Per Pain Protocol Multivitamins/Minerals (Vit A,C & E/Lutein/Minerals Tablet) 1 tab PO DAILY [facility] Last Admin: 06/22/21 09:46 Dose: Not Given Documented by: Ondansetron HCl (Ondansetron 4 Mg/2 Ml Vial) 4 mg IV Q6HP PRN PRN Reason: Nausea And Vomiting Oxycodone HCl (Oxycodone Hcl 5 Mg Tablet) 5 mg PO Q4HP PRN; Protocol PRN Reason: Per Pain Protocol Lysine Hcl 500 Mg (Tablet) 1 dose PO BID [facility] Last Admin: 06/22/21 21:45 Dose: Not Given Documented by: Potassium Chloride (Potassium Chloride 20 Meq Tablet) 20 meq PO BID [facility] Last Admin: 06/22/21 21:44 Dose: 20 meq Documented by: Senna (Sennosides 1 Tablet) 2 tab PO HS [facility] Last Admin: 06/22/21 21:45 Dose: 2 tab Documented by: Sodium Chloride (0.9 % Sodium Chloride 10 Ml Syringe) 10 ml IV Q8 [facility] Last Admin: 06/23/21 04:03 Dose: Not Given Documented by: Zinc Sulfate (Zinc Sulfate 50 Mg Capsule) 50 mg PO DAILY [facility] Last Admin: 06/22/21 10:03 Dose: Not Given Documented by: Zolpidem Tartrate (Zolpidem 5 Mg Tablet) 5 mg PO HSP PRN PRN Reason: Insomnia A/P Narrative A/P Narrative: A: *Left pyelonephritis (E.coli, pansensitive per lab) & Cysitis: -Blood/urine culture no growth to date -Leukocytosis resolved *HO on ?CKD: Likely secondary to pyelonephritis, CT abdomen pelvis shows no hydronephrosis or obstruction -improved *Hyponatremia: RESOLVED *Hypokalemia: *Anemia, normocytic normochromic: *PVD: Continue aspirin/statin *HTN: cont Amlodipine /BB *Hypothyroidism: *GERD: *DM: HgA1c 10.2, poorly controlled *Obesity: *Deconditioning/debility: Uses walker due to h/o falls P: -Rocephin, pending UC -NS IVF d/c -Replace electrolytes -cont norvasc/BB -hold ARB/HCTZ for HO, will not restart HCTZ d/t hyponatremia -SSI -pt/ot -ppx: Heparin / home ppi 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
[2021-06-23] MEDS ORDERED: FENOFIBRATE 43 MG CAPSULE PO SCH (09:00)
[2021-06-23] MEDS ORDERED: ISOSORBIDE MONONITRATE 30 MG TAB.XL.24H PO SCH (09:00)
[2021-06-23] MEDS ORDERED: FLU VACC QS2021-22(6MOS UP)/PF 60 MCG/0.5 ML SYRINGE IM ONE (11:45)
[2021-06-23] MEDS: cefTRIAXone 2 GM in DEXTROSE 5% IN WATER 50 ML IV SCH (11:47)
[2021-06-23] MEDS: LYSINE HCL 500 MG PO SCH (11:57)
[2021-06-23] MEDS: DOCUSATE SODIUM 100 MG CAPSULE PO SCH (11:58)
[2021-06-23] MEDS: LORATADINE 10 MG TABLET PO SCH (11:58)
[2021-06-23] MEDS: FLUTICASONE PROPIONATE SPRAY.NAS NS SCH (11:58)
[2021-06-23] MEDS: MULTIVIT,THER IRON,CA,FA & MIN 1 TABLET PO SCH (11:59)
[2021-06-23] MEDS: GLUCOSAMINE/CHONDROITIN SULF A 1 CAP CAPSULE PO SCH (11:59)
[2021-06-23] MEDS: VIT A,C & E/LUTEIN/MINERALS TABLET PO SCH (11:59)
[2021-06-23] MEDS: ZINC SULFATE 50 MG CAPSULE PO SCH (12:00)
[2021-06-23] MEDS: ASPIRIN 81 MG TAB.CHEW PO SCH (12:24)
[2021-06-23] MEDS: METOPROLOL TARTRATE 25 MG TABLET PO SCH (12:25)
[2021-06-23] MEDS: amLODIPine 10 MG TABLET PO SCH (12:25)
[2021-06-23] MEDS: LEVOTHYROXINE 125 MCG TABLET PO SCH (12:27)
[2021-06-23] MEDS: POTASSIUM CHLORIDE 20 MEQ TABLET PO SCH (12:42)
[2021-06-23] MEDS: HEPARIN 5,000 UNIT/ML VIAL SQ SCH (12:49)
[2021-06-23] MEDS ORDERED: ATORVASTATIN 10 MG TABLET PO SCH (21:00)
== END 2021-06-23 15:26 | disposition home or self-care (01) | DRG 690 ==
LOC: ED 09:16 → MEDSUR 16:55
PROVIDERS: ADMIT Internal Medicine; ATTEND Internal Medicine